=== PATIENT | female | born 1985 | race Two or more races ===

== ENCOUNTER 2018-01-23 11:40 | Emergency (ER) | payer OTHER ==
--- NOTE | 2018-01-23 11:53 | PDOC ---
History of Present Illness - General Chief Complaint: Pain Stated Complaint: ABD PAIN Time Seen by Provider: 01/23/18 11:52 - History of Present Illness Initial Comments: 01/23/18 12:54 Chief complaint: Abdominal and back pain History of present illness: Left pelvic and low back pain for 10 days. Evaluated 4 days ago at a hospital in [place]. diagnosed. Quantitative beta was in the high 700s. Ultrasound was negative. Told to follow up. Has [facility] care at [facility] in [place] but unable to make an appointment for another month. Review of systems: LMP December 23, no vaginal bleeding, mucoid vaginal discharge, no vaginal pain, itching, or lesions. 3 para 2, approximately 1-1/2 years ago, 3 weeks premature but no morbidity. Was followed in high risk obstetric clinic because of slower than expected hormone elevations and suggestion of a brain cyst in the infant on ultrasound. Otherwise the patient had an uneventful and a brain cyst was not documented at delivery with further studies. Despite the current pain, the patient has had no nausea vomiting diarrhea hematemesis melena or bloody stool chest pain or shortness of breath urinary tract symptoms. Remainder systems reviewed and found to be negative Past medical history: Healthy female, no significant medical or surgical problems past or present other than during her previous delivery as noted above Social history: Denies alcohol tobacco or nonprescription drugs. Fully active without disability. Stable home and family Family history: Reviewed and noncontributory. Physical exam: Patient is alert oriented 3 well-developed well-nourished in no acute distress cheerful and cooperative Afebrile, vital signs normal No pallor or icterus. HEENT clear Neck supple without bruit mass or nodes Chest clear CV regular without murmur rub or gallop Abdomen nondistended. Bowel sounds normal. Soft without mass tenderness or organomegaly. No CVAT. Pelvis and spine without point tenderness or deformity Extremities no CCE Skin clear, no rash, adequate turgor and wet mucous membranes Neurological C2 to 12 intact. Strength full and symmetric. No focal sensory or motor deficits. Gait stable and unimpaired. No nystagmus. No clonus. Reflexes 2 + symmetric. Impression: Early , left pelvic pain, no sign of peritoneal irritation or other GI disease. Most likely due to current . Rule out ectopic Plan: Repeat quantitative beta, ultrasound, and further [facility] evaluation depending on results. Past History - Past Medical History Allergies/Adverse Reactions: Allergies Allergy/AdvReac Type Severity Reaction Status Date / Time No Known Allergies Allergy Verified 01/23/18 11:44 Home Medications: Ambulatory Orders NK [No Known Home Medication] 01/23/18 Medical Decision Making - Medical Decision Making 01/23/18 13:28 Ultrasound shows a gestational sac within the uterus, but it is too early to see any other structures. The adnexa are clear except for small corpus luteal cyst,no free fluid. Quantitative beta is pending. Patient is given a copy of her ultrasound result and will be contacted with the results of the hCG level. She is encouraged to follow-up with her primary [facility] physician as soon as possible, or to return to the emergency room if the pain becomes more severe, or there or other associated symptoms, especially vaginal bleeding, lightheadedness or dizziness, or fever. Fully ambulatory and in no distress upon discharge with her family to follow-up as directed *DC/Admit/Observation/Transfer Diagnosis at time of Disposition: Pelvic pain affecting in first trimester, antepartum - Discharge Dispostion Disposition: HOME Condition at time of disposition: Stable Admit: No - Referrals Referrals: Amna Landa MD [Staff Physician] - 3 days - Patient Instructions Printed Discharge Instructions: Ovarian Cyst Additional Instructions: Bed rest. Return to ER if pain becomes more severe or there is vaginal bleeding , fever, lightheadedness. Otherwise see [facility] doctor as soon as possible for further evaluation and treatment - Post Discharge Activity
[2018-01-23 11:54] VITALS: BP 126/75; PULSE 95; TEMP 97.6; BMI 25.4
[2018-01-23 12:04] LABS: URINE APPEARANCE Clear; URINE BILIRUBIN Negative (NEGATIVE); URINE BLOOD Negative (NEGATIVE); URINE GLUCOSE (UA) Negative (NEGATIVE); URINE KETONE Trace (NEGATIVE); URINE LEUK ESTERASE Negative (NEGATIVE); URINE NITRITE Negative (NEGATIVE); URINE PROTEIN Negative (NEGATIVE); URINE UROBILINOGEN 0.2 (0.2-1.0)
[2018-01-23 12:05] LABS: URINE COLOR AMBER
[2018-01-23 12:09] LABS: HCG,QUALITATIVE URINE POSITIVE
[2018-01-23] MEDS ORDERED: ACETAMINOPHEN 325 MG TABLET (FP) PO ONE (13:01)
[2018-01-23] MEDS ORDERED: ACETAMINOPHEN 325 MG TABLET (FP) ONE (13:05)
== END 2018-01-23 13:35 | disposition home or self-care (01) ==
LOC: FER 11:40
DX: O26.891 Other specified pregnancy related conditions, first trimester (principal); Z3A.01 Less than 8 weeks gestation of pregnancy; R10.2 Pelvic and perineal pain
CPT/HCPCS: 36415; 76801-TC; 81003; 84702; 84703; 99283-25